=== PATIENT | female | born 1975 | race Caucasian/White ===

== ENCOUNTER 2020-05-28 16:13 | Inpatient (IN) | payer OTHER ==
[~2020-05-28] VITALS: Ht 162.6 cm; Wt 67.6 kg
[2020-05-28 16:17] VITALS: Ht 162.6 cm; Wt 67.6 kg
--- NOTE | 2020-05-28 16:19 | NUR ---
EKG IN PROGRESS IN TRIAGE.
--- NOTE | 2020-05-28 16:40 | NUR ---
PT PRESENTS WITH LEFT SIDED CHEST TIGHTNESS THAT RADIATES TO HER LEFT SIDE OF HER NECK. PT STS THAT SHE HAS SOME "MILD" NUMBNESS TO LEFT ARM. PT DENIES ANY HEADACHE/BLURRY VISION/ABDOMINAL PAIN. PERRLA NOTED. PT PLACED ON CM, NSR NOTED. AAOX4, RESP E/U. PT DENIES ANY TRAUMA TO CHEST OR NECK. VSS. RESP E/U. SKINS WNL. NO ACUTE DISTRESS NOTED. WILL CONTINUE TO MONITOR.
[2020-05-28 16:54] LABS: BASOPHIL % 0.6 % (0-2); PLATELET COUNT 236 x10^3mcL (130-400); RED CELL DISTRIBUTION WIDTH 14.3 % (11.5-14.5)
[2020-05-28 17:18] LABS: CALCIUM 8.5 mg/dL (8.5-10.1); CARBON DIOXIDE 30.3 mmol/L (21-32); CHLORIDE SERUM 102 mmol/L (98-107); CREATININE SERUM 0.8 mg/dL (0.6-1.0); GFR1 > 60 mL/min; GLUCOSE SERUM 125 mg/dL (74-106); POTASSIUM SERUM 3.5 mmol/L (3.5-5.1); SODIUM SERUM 137 mmol/L (136-145)
--- NOTE | 2020-05-28 19:12 | NUR ---
ASSUMING CARE OF PT AT THIS TIME. PT AWAKE AND ALERT. AA/OX4. RESP EVEN AND UNLABORED, PT STATES THAT CHEST PRESSURE STARTED TODAY WITH RADAITING TO LEFT SIDE OF NECK. DENIES INJURY OR TRAUMA. PT IN GOWN AND LEIGH FULL CM. IV INSERTED WITH NOTHING RUNNING AT THIS TIME. AWAITING TELE ROOM. WILL CONT TO MONITOR.
[2020-05-28 19:48] LABS: microscopic required? YES; urine erythrocyte NEGATIVE (NEGATIVE)
--- NOTE | 2020-05-28 19:48 | NUR ---
CALLED REPORT TO [facility] TO ASSUME CARE OF PT.
[2020-05-28 19:54] LABS: AMPHETAMINE QUAL UR NONE DETECTED (See below)
[2020-05-28 20:05] LABS: CHOLESTEROL/HDL RATIO 3.1
[2020-05-28 20:18] VITALS: BP 119/53
--- NOTE | 2020-05-28 20:28 | NUR ---
RECEIVED PT FROM ER, PT ADMIT FOR CHEST PAIN, PT IS A/O X4, VERBAL RESPONSIVE, LUNG SOUND CLEAR BILATERAL, NO COUGH, NO SOB. PT IS ON TELE 1, NSR, C/O PRESSURE CHEST PAIN AT LEFT SIDE 2/10 AT THIS MOMENT, BOWEL SOUND PRESENT ALL 4 QUADRANTS, NO DISTENTION, NO TENDER. PEDAL PULSE PRESENT BOTH FEET, NO EDEMA, IV AT LEFT AC, NO LEAKING, NO INFILTRAITON. ALL ADLS ASSIST, ALL NEED MET, CALL LIGHT IN REACH, WILL CONTINUE TO MONITOR.
--- NOTE | 2020-05-28 21:00 | NUR ---
PT RECIEVED FROM [facility]. PT RESTING IN BED AT THIS TIME. DENIES PAIN OR DISCOMFORT. BREATHING E/U ON RA. NO S/S OF ACUTE DISTRESS AT THIS TIME. ORIENTED TO ROOM AND DEVICES. WILL CONTINUE TO MONITOR.
--- NOTE | 2020-05-29 | NUR ---
PT RESTING IN BED AT THIS TIME. DENIES PAIN OR DISCOMFORT. PT BREATHING E/U ON RA. NO S/S OF ACUTE DISTRESS NOTED.
[2020-05-29 04:47] VITALS: BP 101/50
--- NOTE | 2020-05-29 06:41 | NUR ---
PT RESTING IN BED AT THIS TIME. DENIES PAIN OR DISCOMFORT. PT BREATHING E/U ON RA. NO S/S OF ACUTE DISTRESS AT THIS TIME. BED AT LOWEST POSITION. CALL LIGHT WITHIN REACH. WILL CONTINUE TO MONITOR.
--- NOTE | 2020-05-29 07:22 | NUR ---
SEEN AOX4, NOT IN DISTRESS, TELE 1, NSR, PALPABLE PULSES, NO EDEMA, CTA ON BLF, +BS, VOIDS WITH NO DYSURIA, NO WEAKNESS, SKIN DRY AND INTACT, NO PAIN AT THIS TIME, IV INTACT AND PATENT, LAC, NO REDNESS OR SWELLING, CALL LIGHT WITHIN REACH, BED AT LOWEST POSITION, SIDE RAILS UP.
[2020-05-29 08:23] VITALS: BP 106/62
--- NOTE | 2020-05-29 08:28 | NUR ---
MEDICATIONS GIVEN PER EMAR.
[2020-05-29 10:58] LABS: BASOPHIL % 0.6 % (0-2); PLATELET COUNT 232 x10^3mcL (130-400); RED CELL DISTRIBUTION WIDTH 14.5 % (11.5-14.5)
[2020-05-29 11:17] LABS: CALCIUM 8.1 mg/dL (8.5-10.1); CARBON DIOXIDE 30.8 mmol/L (21-32); CHLORIDE SERUM 105 mmol/L (98-107); CREATININE SERUM 0.7 mg/dL (0.6-1.0); GFR1 > 60 mL/min; GLUCOSE SERUM 96 mg/dL (74-106); MAGNESIUM 2.1 mg/dL (1.8-2.4); PHOSPHOROUS 2.9 mg/dL (2.5-4.9); POTASSIUM SERUM 4.6 mmol/L (3.5-5.1); SODIUM SERUM 139 mmol/L (136-145)
[2020-05-29 13:36] VITALS: BP 103/48
[2020-05-29 16:52] VITALS: BP 103/48
--- NOTE | 2020-05-29 17:10 | NUR ---
DISCHARGE INSTRUCTIONS GIVEN. INSTRUCTED TO FF UP WITH PCP VIA TELEPHONE CONSULT.INSTRUCTED TO GO TO ER IF WORSENING SYMPTOMS SHOW OR PERSIST. INSTRUCTED TO BRING BELONGINGS WITH PATIENT. PATIENT UNDERSTOOD INSTRUCTIONS, PATIENT SIGNED DISCHARGE FORM AND PLACED ON CHART. IV REMOVED. CATHETER INTACT, TELE 1 REMOVED AND GIVEN TO SAFETY INVESTIGATOR JESUS. ID BAND REMOVED.
--- NOTE | 2020-05-29 17:27 | NUR ---
DISCHARGED PER AMBULATORY ACCOMPANIED BY SELF.
== END 2020-05-29 17:27 | disposition home or self-care (01) | DRG 206 ==
LOC: ED 16:13 → DU 19:24
PROVIDERS: Emergency Medicine; ADMIT Internal Medicine; ATTEND Internal Medicine
DX: M94.0 Chondrocostal junction syndrome [Tietze] (principal); N39.0 Urinary tract infection, site not specified; D64.9 Anemia, unspecified; Z79.82 Long term (current) use of aspirin; Z79.899 Other long term (current) drug therapy
CPT/HCPCS: G0378; J7030